=== PATIENT | male | born 1950 | race Caucasian/White ===

== ENCOUNTER 2024-11-05 10:06 | Emergency (ER) | payer MEDICARE ==
[2024-11-05] MEDS ORDERED: Ondansetron PF 4 MG/2 ML Vial ONE (10:50)
[2024-11-05] MEDS ORDERED: Dicyclomine 20 MG TAB ONE (10:51)
[2024-11-05 10:56] LABS: #Basophils 0.03 10x3/uL (0.0-0.2); #Eosinophils 0.13 10x3/uL (0.0-0.5); #Monocytes 0.29 10x3/uL (0.0-1.1); #Neutrophils 4.43 10x3/uL (1.5-8.4); %Basophils 0.5 % (0.0-2.0); %Eosinophils 2.2 % (0.0-6.0); %Lymphocytes 16.0 % (18.0-47.0); %Monocytes 5.0 % (0.0-10.0); %Neutrophils 76.0 % (40.0-75.0); Hematocrit 39.6 % (38.8-50.0); Hemoglobin 13.3 g/dL (13.5-17.5); Mean Corpuscular Hemoglobin 29.8 pg (27.0-33.0); Mean Corpuscular Volume 88.8 fL (81.2-95.1); Platelet Count 216 10x3/uL (150-450); Red Blood Cell (RBC) Count 4.46 10x6/uL (4.32-5.72); White Blood Cell (WBC) Count 5.83 10x3/uL (3.5-10.5)
[2024-11-05 11:18] LABS: ALT (SGPT) 16 U/L (Less than 45); AST (SGOT) 31 U/L (11-34); Albumin 3.9 g/dL (3.1-4.5); Alkaline Phosphatase 80 U/L (40-110); Anion Gap 13 mmol/L (10-20); BUN (Urea Nitrogen) 19 mg/dL (8.4-25.7); Bilirubin, Total 0.7 mg/dL (0.3-1.2); Calc. Creatinine Clearance 0 mL/min (70-130); Calcium 9.9 mg/dL (7.8-10.44); Carbon Dioxide 21 mmol/L (23-31); Chloride 108 mmol/L (98-107); Globulin 2.7 g/dL (2.4-3.5); Glucose 101 mg/dL (83-110); Lipase 46 U/L (8-78); Potassium 4.3 mmol/L (3.5-5.1); Sodium 138 mmol/L (136-145)
[2024-11-05 12:53] LABS: Glucose, Urine (Dipstick) Normal (Negative); Leukocyte Negative (Negative); Protein, Urine (Dipstick) Negative (Neg-Trace); Specific Gravity, Urine 1.010 (1.005-1.030)
[2024-11-05 13:04] LABS: CAUTI Indications for Culture Pelvic or flank pain; RBC/HPF 0-3 HPF (0-3); WBC/HPF 0-3 HPF (0-3)
[2024-11-05 13:05] LABS: Bacteria/HPF None Seen HPF (None Seen)
[2024-11-05 13:06] LABS: Urine Culture Reflex No No
== END 2024-11-05 13:48 | disposition home or self-care (01) ==
LOC: CSHERS 10:06
DX: R10.31 Right lower quadrant pain (principal); I10 Essential (primary) hypertension; Z79.899 Other long term (current) drug therapy; Z79.82 Long term (current) use of aspirin; Z87.891 Personal history of nicotine dependence
CPT/HCPCS: 74177; 80053; 81001; 83690; 85025; J2405; 36415; 96374